=== PATIENT | female | born 1975 | race Caucasian/White ===

== ENCOUNTER 2017-05-16 18:21 | Emergency (ER) | payer MEDICARE, BC ==
[~2017-05-16] VITALS: Ht 162.6 cm; Wt 104.3 kg
[~2017-05-16 18:21] MED LIST: BUDE10.2 IH; FURO-69 PO; METR500T PO; MONT10TA9 PO; PROAIR HFA8.5 GM IH
[2017-05-16 18:25] VITALS: BP 166/80
[2017-05-16] MEDS ORDERED: HYDR-971 PO (19:43)
[2017-05-16] MEDS ORDERED: CYCL10TA2 PO (19:43)
--- NOTE | 2017-05-16 19:43 | PHYS DOC ---
Past Medical History Past Medical History: COPD Additional Past Medical Histor: swelling in feet Past Surgical History: Oophorectomy Additional Past Surgical Histo: R KNEE Alcohol Use: None Drug Use: None Adult General Chief Complaint Chief Complaint: LOWER BACK PAIN OR INJURY HPI HPI Patient is a 41 year old female who presents with exacerbation of chronic back pain. Patient states she has history of herniated disc and today she was racing resulting to exacerbation of her pain. Patient denies any trauma. Denies any loss of bowel bladder function. She states the pain is radiating to bilateral lower extremities. Review of Systems Review of Systems Constitutional: Denies fever or chills [] [] GI: Denies abdominal pain, nausea, vomiting, bloody stools or diarrhea [] : Denies dysuria or hematuria [] Musculoskeletal: back pain Integument: Denies rash or skin lesions [] Neurologic: Denies headache, focal weakness or sensory changes [] Endocrine: Denies polyuria or polydipsia [] Current Medications Current Medications Current Medications Medications (Trade) Dose Ordered Sig/Juliana Start Time Stop Time Status Last Admin Dose Admin Dexamethasone Sodium Phosphate (Decadron) 10 mg 1X ONCE 05/16/17 20:15 05/16/17 20:16 Ketorolac Tromethamine (Toradol Im) 60 mg 1X ONCE 05/16/17 20:15 05/16/17 20:16 Allergies Allergies Allergies Coded Allergies Type Severity Reaction Last Updated Verified No Known Drug Allergies 12/28/14 No Physical Exam Physical Exam Constitutional: Well developed, well nourished, no acute distress, non-toxic appearance. [] Abdomen: Bowel sounds normal, soft, no tenderness, no masses, no pulsatile masses. [] Skin: Warm, dry, no erythema, no rash. [] Back: Diffuse paraspinal muscle tenderness to bilateral lumbar spine, no midline lumbar spine tenderness, no CVA tenderness. [] Patient is in standing position for comfort, straight leg raises not attempted. Extremities: No tenderness, no cyanosis, no clubbing, ROM intact, no edema. [] Neurologic: Alert and oriented X 3, normal motor function, normal sensory function, no focal deficits noted. [] Psychologic: Affect normal, judgement normal, mood normal. [] Current Patient Data Vital Signs Vital Signs Date Time Temp Pulse Resp B/P (MAP) Pulse Ox O2 Delivery O2 Flow Rate FiO2 05/16/17 18:25 98.0 92 20 97 Room Air 98.0 EKG EKG [] Radiology/Procedures Radiology/Procedures [] Course & Med Decision Making Course & Med Decision Making Pertinent Labs and Imaging studies reviewed. (See chart for details) Patient is in the ED with exacerbation of chronic back pain, no signs and symptoms of cauda equina syndrome. She was given pain relief in the ED and discharged. Follow-up with her doctor on Friday. Dragon Disclaimer Dragon Disclaimer This electronic medical record was generated, in whole or in part, using a voice recognition dictation system. Departure Departure Impression: Primary Impression: Acute exacerbation of chronic low back pain Additional Impressions: Left sided sciatica Sciatica, right side Disposition: HOME, SELF-CARE Condition: STABLE Referrals: EDWIN MALIK APRN (PCP) Follow-up with your doctor in one week or sooner if need be Patient Instructions: Back Pain, Adult, [id number] Additional Instructions: You were seen for exacerbation of chronic back pain. Follow-up with your doctor as soon as possible. Come back to the ED if you develop any new concerning symptoms Including but not limited to loss of bowel or bladder function. Scripts Cyclobenzaprine Hcl (CYCLOBENZAPRINE HCL) 10 Mg Tablet 1 TAB PO TID, #30 TAB Prov: HAN COLLADO APRN 05/16/17 Hydrocodone/Apap 5-325 (NORCO 5-325 TABLET) 1 Each Tablet 1-2 TAB PO Q4-6HRS, #20 TAB Prov: HAN COLLADO APRN 05/16/17 Problem Qualifiers HAN COLLADO APRN May 16, 2017 19:43
[2017-05-16] MEDS ORDERED: KETOROLAC TROMETHAMINE 60 MG/2 ML INJ. IM ONE (20:15)
[2017-05-16] MEDS ORDERED: DEXAMETHASONE SOD PHOS 20 MG/5 ML VIAL. IM ONE (20:15)
== END 2017-05-16 19:58 | disposition home or self-care (01) ==
LOC: ER 18:21
DX: M54.42 Lumbago with sciatica, left side (principal); M54.41 Lumbago with sciatica, right side; G89.29 Other chronic pain; J44.9 Chronic obstructive pulmonary disease, unspecified
CPT/HCPCS: 96372; 99284; J1100; J1885

== ENCOUNTER 2017-11-23 12:53 | Emergency (ER) | payer MEDICARE, MEDICAID, BC ==
[2017-11-23] MEDS ORDERED: MORPHINE SULFATE 10 MG/ML VIAL. IM ×2 (13:30)
[2017-11-23] MEDS: HYDROmorphone 2 MG/ML VIAL IM ×2 (14:41)
[2017-11-23] MEDS: ONDANSETRON ODT 4 MG TAB.RAPDIS. PO ×2 (14:42)
[2017-11-23] MEDS: DIPHTH,PERTUSS(ACELL),TET TOX 0.5 ML DISP.SYRIN. VAX IM ×2 (14:47)
[2017-11-23] MEDS: NEOMY/BACITR/POLYMYXIN OINT PACKET. TP ×2 (14:48)
== END 2017-11-23 15:23 | disposition home or self-care (01) ==
LOC: ER 12:53
DX: S51.811A Laceration without foreign body of right forearm, initial encounter (principal); S81.811A Laceration without foreign body, right lower leg, initial encounter; J44.9 Chronic obstructive pulmonary disease, unspecified; W55.03XA Scratched by cat, initial encounter; Y93.89 Activity, other specified; Y99.8 Other external cause status; Y92.89 Other specified places as the place of occurrence of the external cause
CPT/HCPCS: 73090; 73130; 90471; 90715; 96372; 99284-25; J1170; Q0162

== ENCOUNTER → 2018-07-14 | Outpatient (CLI) | payer OTHER ==
[2017-11-23 14:30] VITALS: BP 157/97
[~2018-07-14] MED LIST changes: +ALBUTEROL SULFATE 2.5 MG/3 ML NEBU. NEB ONE; +AMOX1TAB61 PO; +CYCL10TA2 PO; +HYDR-2762 PO; +HYDR-971 PO
== END | disposition home or self-care (01) ==
LOC: PF 09:44
PROVIDERS: ATTEND Surgery
DX: J44.9 Chronic obstructive pulmonary disease, unspecified (principal)
CPT/HCPCS: 94060; 94640; 94729; J7613

== ENCOUNTER → 2018-10-12 | Outpatient (CLI) | payer MEDICARE ==
[2018-10-04 21:09] VITALS: BP 171/87
[~2018-10-12] MED LIST changes: +ALBU2.5V8 IH; -ALBUTEROL SULFATE 2.5 MG/3 ML NEBU. NEB ONE; +DICL50TA4 PO; -HYDR-2762 PO; +HYDR-2765 PO; +HYDR-3164 PO; -HYDR-971 PO; +METH4TAB2 PO; -PROAIR HFA8.5 GM IH
--- NOTE | 2018-10-12 10:11 | KCIC ---
MR of the left shoulder Indication: Left shoulder pain. Pain for several months.. Comparison: None are available. Technique: Standard multiplanar sequences are obtained. Findings: Artifact: Moderate motion degradation. Acromioclavicular joint:Intact. Rotator cuff: * Supraspinatus-infraspinatus tendon: Tendinosis, no evidence of a tear. * Subscapularis tendon: Tendinosis, no high-grade tear. * Muscle bulk: Within normal limits * Subacromial subdeltoid bursa: No significant effusion. Fluid: No significant glenohumeral effusion. Glenohumeral cartilage: No acute defect or advanced DJD. Labrum: No evidence of labral detachment. Biceps tendon: Intact Bones: No lesion or acute fracture. Soft tissue: No acute findings.. Impression: Rotator cuff tendinosis, no evidence of rotator cuff tear. Motion degradation. Electronically signed by: oSlis Flynn MD (10/12/2018 10:07 AM) [facility]
== END | disposition home or self-care (01) ==
LOC: KCIC MRI 08:43
PROVIDERS: ATTEND Orthopaedic Surgery
DX: M75.32 Calcific tendinitis of left shoulder (principal); M25.512 Pain in left shoulder
CPT/HCPCS: 73221

== ENCOUNTER 2018-11-27 09:36 | Day surgery (SDC) | payer MEDICARE ==
[~2018-11-27] VITALS: Ht 161.3 cm; Wt 119.3 kg
[~2018-11-27 09:36] MED LIST changes: +HYDROmorphone 2 MG/ML VIAL IV PRN; +LIDOCAINE 1% PF 2 ML VIAL. ID PRN; +MORPHINE SULFATE 4 MG/ML VIAL. IV PRN; +PROCHLORPERAZINE 10 MG/2 ML VIAL. IV PRN; +fentaNYL PF VIAL 100 MCG/2 ML VIAL IV PRN
[2018-11-27] MEDS ORDERED: PROPOFOL 20 ML IV ONE ×2 (09:52→13:26)
[2018-11-27] MEDS ORDERED: DEXAMETHASONE SOD PHOS 20 MG/5 ML VIAL. ONE (09:52)
[2018-11-27] MEDS ORDERED: ROCURONIUM 50 MG/5 ML VIAL. ONE (09:52)
[2018-11-27] MEDS ORDERED: ONDANSETRON PF 4 MG/2 ML VIAL. ONE (09:52)
[2018-11-27] MEDS ORDERED: LIDOCAINE 2% PF Vial for OR 5 ML VIAL. ONE (09:52)
[2018-11-27] MEDS ORDERED: fentaNYL PF VIAL 100 MCG/2 ML VIAL ONE ×3 (09:54→14:38)
[2018-11-27 10:46] LABS: U PREG PATIENT NEGATIVE (NEG)
[2018-11-27] MEDS ORDERED: ALBU2.5V14 NEB (10:53)
[2018-11-27] MEDS ORDERED: OXYC1TAB22 PO (10:54)
[2018-11-27] MEDS ORDERED: NAPR-514 PO (10:54)
[2018-11-27] MEDS: IV RINGERS,LACTATED 1000ML 1,000 ML IV SCH (10:59)
[2018-11-27] MEDS ORDERED: MIDAZOLAM HCL/PF 2 MG/2 ML VIAL. ONE ×2 (11:01→11:52)
[2018-11-27] MEDS ORDERED: ROPIVacaine 0.5% PF 20 ML VIAL. ONE (11:01)
[2018-11-27] MEDS ORDERED: ALBUTEROL SULFATE 2.5 MG/3 ML NEBU. ONE ×2 (11:28→14:18)
[2018-11-27] MEDS ORDERED: IPRATRPIUM/ALBUTEROL 0.5/2.5MG 3 ML NEBU. ONE ×2 (11:29→14:04)
[2018-11-27] MEDS: EPINEPHrine NASAL 30 MG/30 ML BOTTLE ONE (12:00)
[2018-11-27] MEDS ORDERED: FAMOTIDINE 20 MG/2 ML VIAL ONE (12:18)
[2018-11-27] MEDS ORDERED: SEVOFLURANE > 120 MINUTES. IH ONE (12:26)
[2018-11-27] MEDS: BUPIVAC MPF-EPI 0.5%-1:200000 30 ML VIAL. ONE ×2 (12:49→13:11)
--- NOTE | 2018-11-27 13:15 | RAD ---
Examination: CHEST PA LATERAL History: PRE OP. HX OF COPD Comparison/Correlation: 05/11/2017 two-view chest x-ray exam Findings: PA and lateral views of chest were obtained. Heart size and pulmonary vasculature are normal. No infiltrate or effusion. No pneumothorax. Calcified granuloma involves the right apex. Other calcified granulomas also are suggested. Bony structures are unremarkable. Impression: No active disease. Electronically signed by: Raúl Joseph MD (11/27/2018 1:10 PM) [facility]
[2018-11-27] MEDS ORDERED: NEOSTIGMINE 10 MG/10 ML VIAL. ONE (13:24)
[2018-11-27] MEDS ORDERED: GLYCOPYRROLATE 1 MG/5 ML VIAL. ONE (13:26)
--- NOTE | 2018-11-27 14:01 | PDOC ---
BRIEF OPERATIVE NOTE Date: Nov 27, 2018 Pre-Op Diagnosis Left shoulder impingement syndrome. Left shoulder acromioclavicular joint osteoarthritis Post-Op Diagnosis Same plus degenerative labral tear Procedure Performed Left shoulder arthroscopy with subacromial decompression Left shoulder arthroscopy with distal clavicle excision, entire articular surface Left shoulder arthroscopy with debridement degenerative anterior labrum tear Surgeon Kavitha Anesthesia Type: General, Regional Blood Loss 25 mL Specimens Obtained None Complications None Operative Note scalene block, plus general dictated [id number] PATY CADE MD Nov 27, 2018 14:01
[2018-11-27] MEDS ORDERED: PROM25TA10 PO (14:04)
[2018-11-27] MEDS: IPRATRPIUM/ALBUTEROL 0.5/2.5MG 3 ML NEBU. NEB ONE (14:05)
[2018-11-27] MEDS: ALBUTEROL SULFATE 2.5 MG/3 ML NEBU. NEB ONE (14:20)
[2018-11-27] MEDS: fentaNYL PF VIAL 100 MCG/2 ML VIAL IV PRN (14:40)
--- NOTE | 2018-11-27 15:00 | OP ---
DATE OF SURGERY: 11/27/2018 PREOPERATIVE DIAGNOSES: 1. Left shoulder impingement syndrome. 2. Left shoulder acromioclavicular joint arthritis. POSTOPERATIVE DIAGNOSES: 1. Left shoulder impingement syndrome. 2. Left shoulder acromioclavicular joint arthritis. 3. Labral degenerative tear. PROCEDURES PERFORMED: 1. Left shoulder arthroscopy with subacromial decompression. 2. Left shoulder arthroscopy with distal clavicle excision, entire distal articular surface of the clavicle. 3. Arthroscopic labral debridement. SURGEON: Lito Plummer MD. ANESTHESIA: General. ESTIMATED BLOOD LOSS: 25 mL. COMPLICATIONS: None. SPECIMENS: None. DRAINS: None. INDICATIONS FOR PROCEDURE: This patient is a 43-year-old woman with left shoulder pain unrelieved with nonoperative treatment. MRI shows tendinitis, and clinically, she has impingement syndrome. The AC joint is tender and painful and somewhat arthritic radiographically, and I recommended distal clavicle excision as well for the symptomatic AC joint arthritis. She and I talked about the risks and benefits of surgery. We discussed the potential risks of infection, continued pain, need for cuff repair, stiffness, bleeding, scarring, or other potential surgical or anesthetic complications. All her questions about surgery were answered and she desired to proceed. Written consent was obtained. DESCRIPTION OF PROCEDURE: The patient was identified in the preoperative holding area. The correct left shoulder was marked by me. She was taken to the operating room where a general anesthetic was used. Preoperative antibiotics were given intravenously. A timeout procedure was performed. The patient was positioned in the beach chair position with bony prominences well padded. Landmarks on the skin were marked with a marker. Local anesthetic with epinephrine was injected under sterile technique into the subacromial bursa and periacromial region and around the AC joint. She also had a scalene block performed by Anesthesia prior to the surgery. The limb was then circumferentially prepared with ChloraPrep solution, and sterile waterproof arthroscopy drapes were applied. The arm was draped free, and a spider arm morgan was used. Posterior, posterolateral, lateral and anterior arthroscopy portals were used. The glenohumeral joint showed normal articular surfaces on the glenoid and the humeral head. The biceps tendon was intact. The anterior labrum had quite a bit of degenerative fraying and the shaver was used through the anterior portal for debridement of this degenerative tear. The subscapularis tendon was normal. The rotator cuff had a normal attachment of the humeral head. There was no evidence of instability. Arthroscopic instruments were removed now from the glenohumeral joint. The subacromial space was entered. The posterolateral portal was used primarily for viewing. A lateral portal was used primarily for the decompression. There was extensive bursitis. It was difficult to visualize initially. I can see why her shoulder was painful as this was a very angry synovitis throughout the entire subacromial space, and I used fairly extensive shaving and the thermal energy device to open the subacromial space for visualization. The acromion was now able to be identified, and the undersurface of the acromion periosteum was removed with the thermal energy device. The anterior acromion was very prominent, and there was impingement occurring. The cuff itself actually was intact once the inflamed synovium was removed from the top of it. I did a 3-stage acromioplasty, with the bur first in the lateral portal, for removing the anterior tip of the acromion and second used the bur in the posterior portal with the arthroscope in the lateral portal, for cutting block technique and smoothing the acromion into a Bigliani type 1 configuration. The third and final smoothing of the acromion was done again with the arthroscope in the posterolateral portal and the bur in the lateral portal for final smooth the undersurface acromion preparation. The distal clavicle was quite prominent, seeming to cause impingement and also appeared somewhat arthritic and inflamed. The entire distal articular surface of the clavicle was removed. For this, I did the viewing both from the lateral and posterolateral portal and used the arthroscope through the anterior portal parallel to the AC joint. The thermal probe was used for hemostasis. Copious irrigation was used to remove all bony fragments. Again, the rotator cuff appears intact and stable to probing. Needle and sponge counts were correct. After irrigation and drainage of the joint, the arthroscopic instruments were removed. The portals were closed with 3-0 Prolene horizontal mattress sutures. Additional 30 mL of 0.5% Marcaine with epinephrine was injected into the shoulder bursa. Needle and sponge counts were correct. Sterile dressings were applied. There were no apparent complications. Lito Plummer MD DR: NAYELY/jeronimo JOB#: [id number] / [id number]
[2018-11-27] MEDS: ONDANSETRON PF 4 MG/2 ML VIAL. IV PRN (15:30)
[2018-11-27 15:50] VITALS: BP 154/78
== END 2018-11-27 15:50 | disposition home or self-care (01) ==
LOC: SURG 09:36
PROVIDERS: ATTEND Orthopaedic Surgery
DX: M19.012 Primary osteoarthritis, left shoulder (principal); M75.42 Impingement syndrome of left shoulder; J44.9 Chronic obstructive pulmonary disease, unspecified; M75.82 Other shoulder lesions, left shoulder; Z72.0 Tobacco use; Z98.890 Other specified postprocedural states; Z83.3 Family history of diabetes mellitus; Z91.041 Radiographic dye allergy status; Z91.048 Other nonmedicinal substance allergy status; Z79.899 Other long term (current) drug therapy; Z83.6 Family history of other diseases of the respiratory system
CPT/HCPCS: 29823; 29824; 71046; 81025; 94640; A7015; C1782; J0696; J1100; J2001; J2250; J2405; J2704; J2710; J2795; J3010; J3490; J7613; J7620

== ENCOUNTER 2019-12-13 07:58 | Emergency (ER) | payer MEDICARE, MEDICAID ==
[~2019-12-13] VITALS: Ht 162.6 cm; Wt 122.2 kg
[~2019-12-13 07:58] MED LIST changes: +ALBU2.5V14 NEB; -HYDROmorphone 2 MG/ML VIAL IV PRN; -LIDOCAINE 1% PF 2 ML VIAL. ID PRN; +MONT10TA49 PO; -MONT10TA9 PO; -MORPHINE SULFATE 4 MG/ML VIAL. IV PRN; +NAPR-514 PO; +ORPH100T PO; +OXYC1TAB22 PO; +PRED20TA PO; -PROCHLORPERAZINE 10 MG/2 ML VIAL. IV PRN; +PROM25TA10 PO; -fentaNYL PF VIAL 100 MCG/2 ML VIAL IV PRN
[2019-12-13] MEDS ORDERED: PRED-220 PO (08:52)
[2019-12-13 09:01] VITALS: BP 167/91
--- NOTE | 2019-12-13 09:44 | PHYS DOC ---
Past Medical History Past Medical History: COPD, Hypertension Additional Past Medical Histor: swelling in feet Past Surgical History: Other Additional Past Surgical Histo: RIGHT KNEE, LEFT SHOULDER Smoking Status: Current Every Day Smoker Additional Information: 10/21 ppd Alcohol Use: None Drug Use: None Adult General Chief Complaint Chief Complaint: SKIN RASH/ABSCESS HPI HPI Patient is a 44 year old female presenting with rash onset 1 week ago on hands scalp and anterior shins. She started a new shampoo as well as a new shaver for when she shaves her legs no shortness of breath trying Benadryl which does help at rest. Review of Systems Review of Systems Constitutional: Denies fever or chills [] Eyes: Denies change in visual acuity, redness, or eye pain [] HENT: Denies nasal congestion or sore throat [] Respiratory: Denies cough or shortness of breath [] All other systems were reviewed and found to be within normal limits, except as documented in this note. Allergies Allergies Allergies Coded Allergies Type Severity Reaction Last Updated Verified povidone-iodine Adverse Reaction Intermediate Rash 11/26/18 Yes soap Adverse Reaction Intermediate Rash 11/26/18 Yes Physical Exam Physical Exam Constitutional: Well developed, well nourished, no acute distress, non-toxic appearance. [] HENT: Normocephalic, atraumatic, bilateral external ears normal, oropharynx moist, no oral exudates, nose normal. [] Eyes: PERRLA, EOMI, conjunctiva normal, no discharge. [] Neck: Normal range of motion, no tenderness, supple, no stridor. [] Cardiovascular:Heart rate regular rhythm, no murmur [] Lungs & Thorax: Bilateral breath sounds clear to auscultation [] Abdomen: l, soft, no tenderness, no masses, no pulsatile masses. [] Skin: Erythematous rash on palms as well as some patchy erythema scaly looks like contact dermatitis some posterior aspect of the pinna just behind the left ear on the scalp. Also anterior raised lesions anterior shins. Excoriation. Back: No tenderness, no CVA tenderness. [] Extremities: No tenderness, no cyanosis, no clubbing, ROM intact, no edema. [] Neurologic: Alert and oriented X 3, normal motor function, normal sensory function, no focal deficits noted. [] Psychologic: Affect normal, judgement normal, mood normal. [] Current Patient Data Vital Signs Vital Signs Date Time Temp Pulse Resp B/P (MAP) Pulse Ox O2 Delivery O2 Flow Rate FiO2 12/13/19 09:01 86 18 167/91 (116) 97 Room Air 12/13/19 08:40 97.8 97.8 Lab Values Patient was advised to get follow-up for the blood pressure within 1 month EKG EKG [] Radiology/Procedures Radiology/Procedures [] Course & Med Decision Making Course & Med Decision Making Pertinent Labs and Imaging studies reviewed. (See chart for details) []Likely contact dermatitis given the history. prednisone taper Dragon Disclaimer Dragon Disclaimer This electronic medical record was generated, in whole or in part, using a voice recognition dictation system. Departure Departure Impression: Primary Impression: Rash Disposition: HOME, SELF-CARE Condition: STABLE Patient Instructions: Rash, [id number] Scripts Prednisone (PREDNISONE ) 10 Mg Tablet 10 MG PO UD for PREDNISONE TAPER, #39 TAB 0 Refills Take 3 tablets by mouth twice a day for 3 days, then take 2 tablets by mouth twice a day for 3 days, then take 1 tablet by mouth twice a day for 3 days, then take 1 tablet by mouth daily x 3 days, then stop. Prov: ARDEN ONOFRE MD 12/13/19 ARDEN ONOFRE MD Dec 13, 2019 09:44
== END 2019-12-13 09:02 | disposition home or self-care (01) ==
LOC: ER 07:58
DX: R21 Rash and other nonspecific skin eruption (principal); I10 Essential (primary) hypertension; J44.9 Chronic obstructive pulmonary disease, unspecified; F17.200 Nicotine dependence, unspecified, uncomplicated; Z91.041 Radiographic dye allergy status; Z88.8 Allergy status to other drugs, medicaments and biological substances
CPT/HCPCS: 99283